=== PATIENT | male | born 1965 | race Caucasian/White ===

== ENCOUNTER 2018-09-08 14:21 | Emergency (ER) | payer MEDICAID ==
[~2018-09-08] VITALS: Ht 180.3 cm; Wt 89.8 kg
[2018-09-08 14:26] VITALS: BP 148/93
--- NOTE | 2018-09-08 15:06 | NUR ---
PT HERE FOR LEFT SHOULDER PAIN. X 1 MONTH
--- NOTE | 2018-09-08 15:40 | NUR ---
Patient/Caregiver given discharge instructions and they have confirmed that they understand the instructions. Patient ambulatory with steady gait.
== END 2018-09-08 15:47 | disposition home or self-care (01) ==
LOC: ED 15:41
DX: S43.422A Sprain of left rotator cuff capsule, initial encounter (principal); W01.0XXA Fall on same level from slipping, tripping and stumbling without subsequent striking against object, initial encounter; Y93.89 Activity, other specified; Y92.410 Unspecified street and highway as the place of occurrence of the external cause; Y99.8 Other external cause status
CPT/HCPCS: 99283